=== PATIENT | female | born 2000 | race Caucasian/White ===

== ENCOUNTER 2023-05-11 09:00 | Inpatient (IN) | payer BC, SELFPAY ==
[2023-05-11] VITALS (68 sets, daily range): BP systolic 91–129; BP diastolic 46–72; PULSE 60–102; TEMP 36.3–37.4; O2SAT 87–100; BMI 29.5
[2023-05-11] MEDS: Lactated Ringers 1,000 ML 50 ML IV (09:27)
[2023-05-11 09:42] LABS: Absolute Lymphocyte Count 1.37 X10^3/uL (0.83-4.51); Basophil# 0.04 X10^3/uL; Basophil% 0.4 % (0-1); Eosinophil# 0.06 X10^3/uL; Eosinophils% 0.5 % (0-5); Hematocrit 36.9 % (37-47); Lymphocyte # 1.37 X10^3/ul (0.83-4.51); Mean Corp Hgb Conc 32.5 g/dL (32-36); Mean Corpuscular Hgb 29.2 pg (27.0-32.0); Mean Corpuscular Volume 89.8 fL (81-99); Monocyte# 0.78 X10^3/uL; Monocyte% 6.8 % (0-10); NRBC Flagged by Analyzer 0 % (0-5); Neutrophil # 8.98 X10^3/uL (2.7-7.7); Neutrophil % 78.9 % (47-70); Platelet Count 226 K/mm3 (150-450); RBC Distribution Width CV 13.1 % (11.6-14.6); RBC Distribution Width SD 42.5 fl (35.1-43.9); Red Blood Count 4.11 M/mm3 (4.2-5.4); White Blood Count 11.4 K/mm3 (4.4-11.0)
--- NOTE | 2023-05-11 10:58 | PCM.HP.OB ---
HPI - General General Date of Admission: 05/11/23 Date of Service: 05/11/23 Chief Complaint: IOL HPI Narrative JOSS CARDENAS, is a 22 F at 39w5d who presents for schedule ECV for breech. She offers no complaints. PFSH PFS Medical History (Updated 05/11/23 @ 11:[address] Farida Esparza, DO) Ectopic Seizures Home Medications ferrous sulfate 325 mg (65 mg iron) tablet (iron) 325 mg PO QODAY anemia 05/11/23 [History Last Taken 05/09/23] vitamins no.144-folic acid 400 mcg chewable tablet () 2 tab PO DAILY 05/11/23 [History Last Taken 05/10/23] Allergy/AdvReac Type Severity Reaction Status Date / Time No Known Allergies Allergy Verified 05/11/23 09:29 Family History (Updated 05/11/23 @ 09:55 by Sarah Kendrick) Father Diabetes Hypertension Surgical History (Updated 05/11/23 @ 09:55 by Sarah Kendrick) History of gynecologic surgery Social History Smoking Status: Current every day smoker History Elective abortions Hx Para 1 Spontaneous abortions Hx # Term Pregnancies Ectopic pregnancies Hx # Pregnancies Multiple births # of living children NST FHR Rate Baby A FHR Category:: Category I Vital Signs Vital Signs Vital Signs: 05/11/23 09:10 05/11/23 09:10 05/11/23 09:10 Temperature Temperature Source Temporal Pulse Rate 66 Blood Pressure 110/72 BP Systolic 110 BP Diastolic 72 Pulse Ox 05/11/23 09:10 05/11/23 09:10 Temperature 97.6 F L Temperature Source Pulse Rate Blood Pressure BP Systolic BP Diastolic Pulse Ox 99 Weight Weight: 171 lb 15.369 oz Body Mass Index (BMI) 29.5 Physical Exam Const alert and no apparent distress General Appearance: comfortable Labs Labs Labs: Blood Type Pending Antibody Screen Pending Hct 36.9 % (37-47) L Hgb 12.0 g/dL (12.0-15.0) Syphilis Total Ab Pending Assessment & Plan (1) 39 weeks gestation of : PLAN: Patient presented to labor and delivery for scheduled version for breech presentation. On bedside transabdominal ultrasound baby noted to be vertex. Discussed unstable lie of fetus. Discussed risk, benefits, alternatives to an induction of labor given 39-week gestation and unstable lie. Patient desires to proceed. GBS neg. Epidural for pain control PRN. Estimated weight expected to be < 4500 g and pelvis adequate. Intracervical wilcox and pit. Patient evaluated by Dr. Kramer and plan of care discussed with Dr. Kramer as well. Will notify provider system operation superintendent. (2) Unstable lie of fetus: (3) Rubella non-immune status, antepartum: (4) Anemia affecting : (5) Late care:
--- NOTE | 2023-05-11 11:04 | NURSING ---
pt requesting LARC, Dr. Kramer notified and plans to place Nexplanon for patient after delivery, new LARC consent signed for LARC request.
[2023-05-11 11:15] LABS: Amphetamine Urine VISTA NEGATIVE (<1000 ng/mL); Barbiturate Urine VISTA NEGATIVE (< 200 ng/mL); Benzodiazepine Urine VISTA NEGATIVE (< 200 ng/mL); Cocaine Urine VISTA NEGATIVE (< 300 ng/mL); Ecstacy Urine VISTA NEGATIVE (< 500 ng/mL); Methadone Urine VISTA NEGATIVE (< 300 ng/mL); PCP Urine VISTA NEGATIVE (< 25 ng/mL); THC Urine VISTA POSITIVE (< 50 ng/mL); Vista UDS pH Range 6
[2023-05-11] MEDS: Oxytocin 15 Units/NS 250ml 15 UNITS/250 ML IV.SOLN 2 UNITS IV (11:28)
--- NOTE | 2023-05-11 11:38 | PCM.PN.BLA ---
Progress Note At bedside with pt. No complaints. Assessment & Plan Assessment/Plan (1) Late care: (2) Anemia affecting : (3) Rubella non-immune status, antepartum: (4) Unstable lie of fetus: (5) 39 weeks gestation of : PLAN: Cvx /-2, head well applied. AROM performed for moderate clear fluid. Categroy 1 tracing.
[2023-05-11] MEDS: 0.9% Normal Saline Single 100 ML IV.SOLN. INTRA-UTER (12:00)
[2023-05-11 15:00] LABS: Syphilis Antibodies Non-reactive
--- NOTE | 2023-05-11 17:55 | EX.PCM.OBRPT ---
Maternal Data Information Final MARIJA: 05/13/23 Gestational age: 39&5 Vaginal Delivery Maternal Presentation Maternal Presentation: Medically Indicated Induction Type of Induction: Pitocin and Amniotomy Operative Information Date of Procedure: 05/11/23 Pre-Operative Diagnosis: Unstable lie Post-Operative Diagnosis: Same Surgery / Procedure Performed: Spontaneous Vaginal Delivery Type of Anesthesia: Epidural Estimated Blood Loss: 300ml Findings Description of Procedure: Patient prepped & draped when C/C/+2. She pushed well to deliver the head. head gently guided to allow delivery of anterior and posterior shoulders. No excess traction placed on head. Body delivered and 3VC clamped & cut in delayed fashion. Placenta delivered with gentle traction and good uterine tone obtained. Presentation: MARCIA Amniotic Membrane Rupture Type: Artificial Amniotic Fluid Description: Clear Placental Delivery Description: Expressed Placenta Disposition: [facility] Specimen(s) Removed: Placenta Cord Vessel Description: 3 Vessels Cord Entanglement: None Infant A Gender: Male (Mike Montemayor) (1 minute): 8 (5 minute): 9 Delayed Cord Clamping: Yes Post Vaginal Delivery Medications Given After Delivery: IV Pitocin Episiotomy Description: None Laceration: None Complication Complications: None
[2023-05-11] MEDS: LACTATED RINGERS 500 ML 999 ML IV (19:25)
[2023-05-11] MEDS: Lactated Ringers 1,000 ML 200 ML IV (19:59)
[2023-05-11] MEDS: fentaNYL-bupivacaine (epidural) 100 ML BAG EPIDURAL (20:00)
[2023-05-11] MEDS: Oxytocin 15 Units/NS 250ml 15 UNITS/250 ML IV.SOLN 83 UNITS IV (22:03)
[2023-05-12] VITALS (10 sets, daily range): BP systolic 101–110; BP diastolic 57–61; PULSE 61–91; RESP 16–18; TEMP 36.6–36.9; O2SAT 98–99
[2023-05-12] MEDS: 0.9% Saline Lock 10 ML Syringe IV (01:05)
[2023-05-12] MEDS: Acetaminophen 500 MG Tablet 1000 MG PO ×2 (05:41→12:28)
--- NOTE | 2023-05-12 08:14 | PN_ITS ---
Subjective Subjective patient seen at bedside, doing well. Patient reports good pain control. lochia mild. Objective Data Objective Data Vital Signs: Vital Signs Temp Pulse Resp BP Pulse Ox O2 Del Method 98.3 F 72 16 106/61 98 Room Air 05/12/23 06:00 05/12/23 07:38 05/12/23 06:00 05/12/23 07:38 05/12/23 06:00 05/12/23 06:00 Oxygen Delivery Method Room Air Weight: 78 kg Body Mass Index (BMI) 29.5 Intake & Output: Intake and Output for Last 24 Hours 05/10/23 05/11/23 05/12/23 23:59 23:59 23:59 Intake Total 1996.80 / 1996.80 250 / 250 Output Total 1350 / 1350 300 / 300 Balance 647.80 / 647.80 -50 / -50 Lab / Micro Data 05/11/23 09:27 Labs: Laboratory Results - last 24 hr 05/11/23 09:27: WBC 11.4 H, RBC 4.11 L, Hgb 12.0, Hct 36.9 L, MCV 89.8, MCH 29.2, MCHC 32.5, RDW Std Deviation 42.5, RDW Coeff of Satish 13.1, Plt Count 226, MPV 11.0, Immature Gran % (Auto) 1.400 H, Neut % (Auto) 78.9 H, Lymph % (Auto) 12.0 L, [place]bon % (Auto) 6.8, Eos % (Auto) 0.5, Baso % (Auto) 0.4, Absolute Neuts (auto) 9.0 H, Absolute Lymphs (auto) 1.37, Nucleated RBC % 0, Syphilis Total Ab Non-reactive, Blood Type O POSITIVE, Antibody Screen NEGATIVE 05/11/23 10:25: Urine Opiates Screen NEGATIVE, Urine Methadone Screen NEGATIVE, Ur Barbiturates Screen NEGATIVE, Ur Phencyclidine Scrn NEGATIVE, Ur Amphetamines Screen NEGATIVE, MDMA (Ecstasy) Screen NEGATIVE, U Benzodiazepines Scrn NEGATIVE, Urine Cocaine Screen NEGATIVE, U Cannabinoids Screen POSITIVE H, Ur Drug Screen Comment Physical Exam Const alert and oriented x3 General Appearance: cooperative HEENT normocephalic Neck General: normal visual inspection GI soft to palpation and non-distended GI Narrative: Fundus firm Extremity normal to inspection and no calf tenderness Skin no rashes or lesions noted Neuro oriented x3 and CN's II-XII intact bilaterally Psych mental status grossly normal Assessment & Plan Assessment/Plan (1) Vaginal delivery: PLAN: Plan PPD#1 , Doing well Routine care pain mgmt ambulation
[2023-05-12] MEDS: Ibuprofen 600 MG Tablet PO ×2 (09:53→18:08)
[2023-05-12] MEDS: Senna/Docusate Sodium 1 Tablet PO (11:37)
[2023-05-12] MEDS: Etonogestrel 68 MG IMPLANT SC (12:20)
[2023-05-12] MEDS: Lidocaine 1% (20 ml mdv) 20 ML Vial INFILT (12:31)
--- NOTE | 2023-05-12 12:32 | OP.PCM_ITS ---
Report of Operation Date of Procedure: 05/12/23 Pre-Operative Diagnosis: contraceptive management- placement of nexplanon Post-Operative Diagnosis: same Surgery/Procedure Performed:: insertion of nexplanon Description of Surgical Findings:: Nexplanon placed in left arm Surgeon: Steffi Merritt patrol captain: None Type of Anesthesia: Local Special Medications: 3cc 1% lidocaine Specimen's removed: none Estimated Blood Loss (mL): none Description of Procedure: Left arm was placed in a neutral position at her side elbow bent at 90 degrees. Medial epicondyle was appreciated. Betadine was used to cleanse insertion site. Lidocaine was injected. Nexplanon was placed superficially. Patient was able to feel where the implant was placed. Steri-Strips were applied. Pressure dressing was applied. Excellent hemostasis. Patient tolerated well. Grafts/Implants Used: nexplanon Complications none Admit VTE Documentation VTE Present on Admission: No
--- NOTE | 2023-05-12 12:37 | NURSING ---
in and has implanted a Nexplanon into the pt's left arm. Consents signed prior to procedure. Pt medicated with Tylenol 1000mg po after procedure.
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
[2023-05-13] MEDS: Acetaminophen 500 MG Tablet 1000 MG PO (00:05)
[2023-05-13 02:55] VITALS: TEMP 36.5
[2023-05-13 02:56] VITALS: BP 108/56; PULSE 72; RESP 16; TEMP 36.5
[2023-05-13] MEDS: Ibuprofen 600 MG Tablet PO (06:03)
[2023-05-13 08:20] VITALS: BP 101/63; PULSE 62; TEMP 37; O2SAT 98
--- NOTE | 2023-05-13 08:33 | PCM.PROGNOTE ---
Subjective Subjective patient seen at bedside, doing well. Patient reports good pain control. lochia mild. Objective Data Objective Data Vital Signs: Vital Signs Temp Pulse Resp BP Pulse Ox O2 Del Method 98.6 F 62 16 101/63 98 Room Air 05/13/23 08:20 05/13/23 08:20 05/13/23 02:56 05/13/23 08:20 05/13/23 08:20 05/13/23 02:56 Oxygen Delivery Method Room Air Weight: 78 kg Body Mass Index (BMI) 29.5 Intake & Output: Intake and Output for Last 24 Hours 05/11/23 05/12/23 05/13/23 23:59 23:59 23:59 Intake Total 1996.80 / 1996.80 250 / 250 Output Total 1350 / 1350 300 / 300 Balance 647.80 / 647.80 -50 / -50 Lab / Micro Data 05/11/23 09:27 Physical Exam Const alert and oriented x3 General Appearance: cooperative HEENT normocephalic Neck General: normal visual inspection GI soft to palpation and non-distended GI Narrative: Fundus firm Extremity normal to inspection and no calf tenderness Skin no rashes or lesions noted Neuro oriented x3 and CN's II-XII intact bilaterally Psych mental status grossly normal Assessment & Plan Assessment/Plan (1) Vaginal delivery: PLAN: Plan PPD#2 , Doing well Routine care pain mgmt ambulation Nexplanon In place - placed yesterday 05/12/23 ne home
--- NOTE | 2023-05-13 08:34 | DCINST_ITS ---
Discharge Instructions Diet Discharge Diet: No restrictions Activity May resume sexual activity in: 6-8 weeks Dressing / Incision Call your doctor if you observe: Fever of 101 or Higher, Inability to urinate, Using more than 1 pad per hour and Uncontrolled pain Follow Up Care Please Follow Up With: Steffi Merritt MD When: 1-2 weeks post and again at 6 weeks post . [phone] Test Results: Test results from this visit will be discussed in further detail at your follow- up appointment, if applicable. Discharge Plan Admission Admit Date/Time: 05/11/23 09:00 Attending Provider: Prasanna Montemayor Primary Care Provider: SAULO OMER Discharge Orders/Prescriptions Prescriptions: New acetaminophen 500 mg Tablet 1,000 mg PO Q6H PRN PRN (Reason: Pain 1-10 Or Fever) Qty: 0 0RF ibuprofen 600 mg Tablet 600 mg PO Q6H PRN PRN (Reason: Pain Score 1-10) Qty: 0 0RF Continued ferrous sulfate [iron] 325 mg (65 mg iron) tablet 325 mg PO QODAY 400 mcg tablet,chewable 2 tab PO DAILY Referrals / Follow Up: SAULO OMER [Other] Disposition Disposition (needs filled in before D/C Order can be placed): Home, Self Care
[2023-05-13 08:51] VITALS: BP 101/63; PULSE 67; RESP 16; TEMP 37; O2SAT 98
== END 2023-05-13 10:15 | disposition home or self-care (01) | DRG 807 ==
PROVIDERS: Admitting Provider Obstetrics & Gynecology; Visit Provider Obstetrics & Gynecology
DX: O32.0XX0 Maternal care for unstable lie, not applicable or unspecified (principal); Z37.0 Single live birth; F17.200 Nicotine dependence, unspecified, uncomplicated; O99.334 Smoking (tobacco) complicating childbirth; O99.02 Anemia complicating childbirth; Z3A.39 39 weeks gestation of pregnancy; Z30.017 Encounter for initial prescription of implantable subdermal contraceptive
CPT/HCPCS: 59025; 59050; 76815; 80307; 85025; 86780; 86850; 86900; 86901; 99221; J7120; A4216; G0378